=== PATIENT | female | born 1980 | race American Indian/Alaskan Native ===

== ENCOUNTER 2017-12-21 09:07 | Emergency (ER) | payer SELFPAY ==
[2017-12-21 10:12] VITALS: BP 126/78
--- NOTE | 2017-12-21 12:57 | Emergency Department Report ---
Chief Complaint: Upper Respiratory Infection Stated Complaint: FLU LIKE SYMPTOMS Time Seen by Provider: 12/21/17 12:52 - HPI History of Present Illness: States she feels like she is coming down with the flu. 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 She denies any medical problems, non smoker, non etoh, no illicit drug use. Denies other symptoms. - ROS Review of Systems: All negative unless stated in brief HPI. - Exam Vital Signs: Vital Signs 12/21/17 10:09 Temperature 98.6 F Pulse Rate 76 Respiratory 18 Rate Blood Pressure 126/78 O2 Sat by Pulse 100 Oximetry Physical Exam: NAD, CTA, RRR, NT ND +BS. MSE screening note: Focused history and physical exam performed. Due to findings the following was ordered: Strep test, consider empiric treatment with tamiflu if strep negative. ED Disposition for MSE Condition: Stable Referrals: PRIMARY CARE, [Primary Care Provider] - 3-5 Days
--- NOTE | 2017-12-21 13:30 | Emergency Department Report ---
- General Chief Complaint: Upper Respiratory Infection Stated Complaint: FLU LIKE SYMPTOMS Time Seen by Provider: 12/21/17 12:52 Source: patient Mode of arrival: Ambulatory Limitations: No Limitations - History of Present Illness Initial Comments: States she feels like she is coming down with the flu. 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 She denies any medical problems, non smoker, non etoh, no illicit drug use. Denies other symptoms. MD Complaint: fever, cough, sore throat, rhinorrhea, nasal congestion, sinus pain Onset/Timin -: days(s) Severity: moderate Severity scale (0 -10): 4 Quality: burning, sharp, aching Consistency: constant Improves With: nothing Worsens With: activity Context: sick contacts Associated Symptoms: fever, chills, myalgias, headache, rhinorrhea, nasal congestion, sore throat, cough, nausea. denies: chest pain, shortness of breath , vomiting, diarrhea, dysuria, rash Treatments Prior to Arrival: none - Related Data Previous Rx's Medication Instructions Recorded Last Taken Type ALBUTEROL Inhaler [ProAir HFA 2 puff IH QID PRN #1 inhalation 12/21/17 Unknown Rx Inhaler] Azithromycin [Zithromax Z-TONIA] 250 mg PO DAILY #6 tab 12/21/17 Unknown Rx Codeine Phosphate/Guaifenesin 5 ml PO TID PRN #120 ml 12/21/17 Unknown Rx [Guaifenesin-Codeine Syrup] Ibuprofen 800 mg PO TID PRN #30 tablet 12/21/17 Unknown Rx predniSONE [Deltasone] 40 mg PO QDAY #10 tab 12/21/17 Unknown Rx ED Review of Systems ROS: Stated complaint: FLU LIKE SYMPTOMS Other details as noted in HPI Constitutional: chills, fever ENT: throat pain, congestion Respiratory: cough, wheezing. denies: shortness of breath, SOB with exertion, SOB at rest Cardiovascular: denies: chest pain, palpitations Endocrine: no symptoms reported Gastrointestinal: nausea. denies: abdominal pain, diarrhea Genitourinary: denies: urgency, dysuria, discharge Musculoskeletal: as per HPI Skin: denies: rash, lesions Neurological: denies: headache, weakness, paresthesias Psychiatric: denies: anxiety, depression Hematological/Lymphatic: denies: easy bleeding, easy bruising ED Past Medical Hx - Past Medical History Previous Medical History?: No - Surgical History Past Surgical History?: No - Social History Smoking Status: Never Smoker - Medications Home Medications: Home Medications Medication Instructions Recorded Confirmed Last Taken Type ALBUTEROL Inhaler [ProAir HFA 2 puff IH QID PRN #1 inhalation 12/21/17 Unknown Rx Inhaler] Azithromycin [Zithromax Z-TONIA] 250 mg PO DAILY #6 tab 12/21/17 Unknown Rx Codeine Phosphate/Guaifenesin 5 ml PO TID PRN #120 ml 12/21/17 Unknown Rx [Guaifenesin-Codeine Syrup] Ibuprofen 800 mg PO TID PRN #30 tablet 12/21/17 Unknown Rx predniSONE [Deltasone] 40 mg PO QDAY #10 tab 12/21/17 Unknown Rx ED Physical Exam - General Limitations: No Limitations General appearance: alert, in no apparent distress - Head Head exam: Present: atraumatic, normocephalic - Eye Eye exam: Present: normal appearance, PERRL, EOMI Pupils: Present: normal accommodation - ENT ENT exam: Present: mucous membranes moist - Expanded ENT Exam Expanded TM/Canal exam: Erythema: Right TM, Left TM, Canal Tenderness: Right TM, Left TM Mouth exam: Absent: trismus Throat exam: Positive: tonsillar erythema, tonsillomegaly, tonsillar exudate. Negative: R peritonsillar mass, L peritonsillar mass - Neck Neck exam: Present: normal inspection, full ROM, lymphadenopathy. Absent: tenderness, meningismus, thyromegaly - Respiratory Respiratory exam: Present: normal lung sounds bilaterally. Absent: respiratory distress, wheezes, rhonchi, stridor, chest wall tenderness - Cardiovascular Cardiovascular Exam: Present: regular rate, normal rhythm, normal heart sounds. Absent: systolic murmur, diastolic murmur, rubs, gallop - GI/Abdominal GI/Abdominal exam: Present: soft, normal bowel sounds. Absent: distended, tenderness, guarding, rebound, rigid, organomegaly, mass, bruit, pulsatile mass , hernia - Rectal Rectal exam: Present: deferred - Extremities Exam Extremities exam: Present: normal inspection - Back Exam Back exam: Present: normal inspection, full ROM. Absent: tenderness, CVA tenderness (R), CVA tenderness (L), muscle spasm, paraspinal tenderness, vertebral tenderness, rash noted - Neurological Exam Neurological exam: Present: alert, oriented X3, CN II-XII intact, normal gait - Psychiatric Psychiatric exam: Present: normal affect, normal mood - Skin Skin exam: Present: warm, dry, intact, normal color. Absent: rash ED Course Vital Signs 12/21/17 10:09 Temperature 98.6 F Pulse Rate 76 Respiratory 18 Rate Blood Pressure 126/78 O2 Sat by Pulse 100 Oximetry ED Medical Decision Making - Medical Decision Making Patient 37-year-old Afro-[place] female who presents for flulike symptoms 2 days symptoms include cough fever or malaise sore throat sinus pain nausea paced his continues to tolerate by mouth intake without nausea and vomiting there is no back pain no shortness of breath no wheezing at this time patient does state nocturnal wheezing exam bilateral TM erythema pain no effusion nose boggy bilateral turbinate erythema and postnasal drip is no polyps noted structure pharynx moderate erythema swelling bilateral tonsillar exudate No lesions U remains midline no stridor lungs clear bilateral this time no wheezing plan treatment for URI bronchitis albuterol prednisone Z-Tonia and Cheratussin when necessary cough patient will continue to hydrate as directed follow up PCP in 2-3 days patient verbalizes understanding of discharge instructions will dc to home in stable condition at this time Critical care attestation.: If time is entered above; I have spent that time in minutes in the direct care of this critically ill patient, excluding procedure time. ED Disposition Clinical Impression: Bronchitis Upper respiratory infection Qualifiers: URI type: unspecified viral URI Qualified Code(s): J06.9 - Acute upper respiratory infection, unspecified Pharyngitis Qualifiers: Pharyngitis/tonsillitis etiology: unspecified etiology Qualified Code(s): J02.9 - Acute pharyngitis, unspecified AOM (acute otitis media) Qualifiers: Otitis media type: serous Laterality: bilateral Recurrence: not specified as recurrent Qualified Code(s): H65.03 - Acute serous otitis media, bilateral Disposition: DC-01 TO HOME OR SELFCARE Is pt being admited?: No Does the pt Need Aspirin: No Condition: Good Instructions: Chronic Bronchitis (ED), Upper Respiratory Infection (ED), Pharyngitis (ED) Prescriptions: ALBUTEROL Inhaler [ProAir HFA Inhaler] 2 puff IH QID PRN #1 inhalation PRN Reason: Shortness Of Breath Azithromycin [Zithromax Z-TONIA] 250 mg PO DAILY #6 tab Codeine Phosphate/Guaifenesin [Guaifenesin-Codeine Syrup] 5 ml PO TID PRN #120 ml PRN Reason: Cough Ibuprofen 800 mg PO TID PRN #30 tablet PRN Reason: pain fever predniSONE [Deltasone] 40 mg PO QDAY #10 tab Referrals: PRIMARY CARE, [Primary Care Provider] - 3-5 Days Forms: Work/School Release Form(ED) Time of Disposition: 13:36
== END 2017-12-21 13:42 | disposition home or self-care (01) ==
LOC: ED 09:07
DX: J06.9 Acute upper respiratory infection, unspecified (principal); J02.9 Acute pharyngitis, unspecified
CPT/HCPCS: 99282

== ENCOUNTER 2018-02-09 22:58 | Emergency (ER) | payer SELFPAY ==
[2018-02-10] MEDS ORDERED: PROVENTIL IH ONE (00:09)
--- NOTE | 2018-02-10 00:33 | XRay Report ---
FINAL REPORT EXAM: XR CHEST ROUTINE 2V HISTORY: cough TECHNIQUE: PA and lateral views of the chest were submitted. FINDINGS: The heart size and mediastinum appear normal. The lungs are clear. Pleural fluid is not seen. The bones and soft tissues appear well maintained. IMPRESSION: No active chest disease.
[2018-02-10] MEDS ORDERED: TYLENOL/CODEINE PO ONE (03:12)
--- NOTE | 2018-02-10 03:54 | Emergency Department Report ---
Minor Respiratory - HPI Chief Complaint: Upper Respiratory Infection Stated Complaint: SOB,FEVER,MUCUS Time Seen by Provider: 02/10/18 02:43 Duration: 2 weeks Severity: moderate Minor Respiratory: Yes Able to Tolerate Fluids, Yes Cough, Yes Shortness of Breath (at night with coughing), No Rhinorrhea, No Sore Throat, No Ear Pain, No Sick Contacts, No Hemoptysis, No Chest Pain, No Fever Other History: Patient is a 37-year-old female in no probable medical history presents to ED complaining of intermittent coughing for the past 2 weeks. Patient states about 2 months ago she was diagnosed with the flu. Patient also states several months ago she was diagnosed with bronchitis. Patient states that coughing has gotten intermittently worse and worse and at night. She states she is coughing so much that she gets short of breath with excessive coughing. She denies fevers/chills/chest pain//dizziness or headache/tobacco use ED Review of Systems ROS: Stated complaint: SOB,FEVER,MUCUS Other details as noted in HPI Constitutional: denies: chills, fever Eyes: denies: eye pain, eye discharge, vision change ENT: denies: ear pain, throat pain, dental pain, congestion Respiratory: cough. denies: shortness of breath, wheezing Cardiovascular: denies: chest pain, palpitations Endocrine: no symptoms reported Gastrointestinal: denies: abdominal pain, nausea, diarrhea Genitourinary: denies: urgency, dysuria, discharge Musculoskeletal: denies: back pain, joint swelling, arthralgia Skin: denies: rash, lesions Neurological: denies: headache, weakness, paresthesias Psychiatric: denies: anxiety, depression Hematological/Lymphatic: denies: easy bleeding, easy bruising ED Past Medical Hx - Past Medical History Previous Medical History?: No - Surgical History Past Surgical History?: Yes Additional Surgical History: - Social History Smoking Status: Former Smoker - Medications Home Medications: Home Medications Medication Instructions Recorded Confirmed Last Taken Type Azithromycin [Zithromax Z-TONIA] 250 mg PO DAILY #6 tab 12/21/17 Unknown Rx Codeine Phosphate/Guaifenesin 5 ml PO TID PRN #120 ml 12/21/17 Unknown Rx [Guaifenesin-Codeine Syrup] ALBUTEROL Inhaler [ProAir HFA 2 puff IH QID PRN #1 inhalation 02/10/18 Unknown Rx Inhaler] Cetirizine HCl [ZyrTEC] 10 mg PO DAILY #24 tab.rapdis 02/10/18 Unknown Rx Ibuprofen 800 mg PO TID PRN #30 tablet 02/10/18 Unknown Rx guaiFENesin ER [Mucinex ER] 600 mg PO Q12H #30 tablet.er 02/10/18 Unknown Rx predniSONE [Deltasone] 40 mg PO QDAY 5 Days #10 tab 02/10/18 Unknown Rx Minor Respiratory Exam - Exam General: Vital signs noted. No distress. Alert and acting appropriately. HEENT: Yes Moist Mucous Membranes, No Pharyngeal Erythema, No Pharyngeal Exudates, No Rhinorrhea, No Conjuctival Injection, No Frontal Tenderness, No Maxillary Tenderness Ear: Neither TM Bulge, Neither TM Erythema, Neither EAC Pain, Neither EAC Discharge Neck: Yes Supple, No Adenopathy Lungs: Yes Good Air Exchange, Yes Cough, No Wheezes, No Ronchi, No Stridor, No Labored Respirations, No Retractions, No Use of Accessory Muscles, No Other Abnormal Lung Sounds Heart: Yes Regular, No Murmur Abdomen: Yes Normal Bowel Sounds, No Tenderness, No Peritoneal Signs Skin: No Rash, No Edema Neurologic: Alert and oriented, no deficits. Musculoskeletal: Unremarkable. ED Course Vital Signs 02/09/18 02/10/18 02/10/18 23:58 00:59 01:13 Temperature 99.3 F Pulse Rate 97 H Pulse Rate [ 110 H 107 H Anterior Bilateral Throughout] Respiratory 18 Rate Respiratory 22 18 Rate [Anterior Bilateral Throughout] Blood Pressure 140/94 O2 Sat by Pulse 100 Oximetry ED Medical Decision Making - Radiology Data Radiology results: report reviewed, image reviewed FINAL REPORT EXAM: XR CHEST ROUTINE 2V HISTORY: cough TECHNIQUE: PA and lateral views of the chest were submitted. FINDINGS: The heart size and mediastinum appear normal. The lungs are clear. Pleural fluid is not seen. The bones and soft tissues appear well maintained. IMPRESSION: No active chest disease. Transcribed By: RB Dictated By: FRANCISCO CALLAHAN MD Electronically Authenticated By: FRANCISCO CALLAHAN MD Signed Date/Time: 02/10/18 0028 - Medical Decision Making 37-year-old female presents with bronchitis ED course: Patient received albuterol breathing treatment, Solu-Medrol and Tylenol with Codeine. Discussed with patient I bronchitis, lasts an hour before 6 weeks to 12 weeks. Discussed the patient to abstain from being outside in the pollen allergies. Discussed the patient will send her home on a daily antihistamine as well as cough suppressant and albuterol inhaler Patient is 100% room air she is in no acute or respiratory distress. Critical care attestation.: If time is entered above; I have spent that time in minutes in the direct care of this critically ill patient, excluding procedure time. ED Disposition Clinical Impression: Bronchitis Disposition: DC-01 TO HOME OR SELFCARE Is pt being admited?: No Does the pt Need Aspirin: No Condition: Stable Instructions: Chronic Bronchitis (ED), Acute Bronchitis (ED) Additional Instructions: Make sure to follow up with the primary care physician as discussed. Take all your medications as you've been prescribed. If you have any worsening symptoms or develop new symptoms please return to ED immediately. Prescriptions: ALBUTEROL Inhaler [ProAir HFA Inhaler] 2 puff IH QID PRN #1 inhalation PRN Reason: Shortness Of Breath Cetirizine HCl [ZyrTEC] 10 mg PO DAILY #24 tab.rapdis guaiFENesin ER [Mucinex ER] 600 mg PO Q12H #30 tablet.er Ibuprofen 800 mg PO TID PRN #30 tablet PRN Reason: pain fever predniSONE [Deltasone] 40 mg PO QDAY 5 Days #10 tab Referrals: ANGELICA LYON MD [Primary Care Provider] - 3-5 Days Forms: Accompanied Note, Work/School Release Form(ED) Time of Disposition: 04:00
[2018-02-10 04:55] VITALS: BP 134/87
== END 2018-02-10 04:55 | disposition home or self-care (01) ==
LOC: ED 22:58
DX: J40 Bronchitis, not specified as acute or chronic (principal); Z87.891 Personal history of nicotine dependence
CPT/HCPCS: 71046; 94640; 96372; 99283; J2930